=== PATIENT | female | born 1945 | race Caucasian/White ===

== ENCOUNTER 2019-12-12 06:33 | Inpatient (IN) | payer MEDICARE ==
[2019-12-12] VITALS (29 sets, daily range): BP systolic 86–122; BP diastolic 38–61
[~2019-12-12] VITALS: Ht 165.1 cm; Wt 77.0 kg
[2019-12-12] MEDS ORDERED: LEVO-T50 MCG PO (06:56)
[2019-12-12] MEDS ORDERED: BENAZEPRIL HCL20 MG PO (06:56)
[2019-12-12] MEDS ORDERED: CARVEDILOL12.5 MG PO (06:56)
[2019-12-12] MEDS ORDERED: NORVASC10 MG PO (06:57)
[2019-12-12] MEDS ORDERED: BREO ELLIPTA 21 EACH INH (06:57)
[2019-12-12] MEDS ORDERED: IPRAT-ALBUT 0.5-3 ML INH (06:58)
[2019-12-12] MEDS ORDERED: PREDNISONE 10 M10 M1 PO (06:58)
[2019-12-12] MEDS ORDERED: XANAX 0.25 MG0.25 MG PO (06:59)
[2019-12-12] MEDS ORDERED: DOXYCYCLINE 10100 M2 PO (06:59)
[2019-12-12] MEDS ORDERED: BIOFREEZE118 ML TOP (07:00)
[2019-12-12] MEDS ORDERED: ACETAMINOPHEN325 M1 PO (07:00)
[2019-12-12] MEDS ORDERED: LORCET 5-325 M1 EACH PO (07:00)
[2019-12-12 07:05] LABS: ABSOLUTE LYMPHOCYTES 1.8 thou/uL (0.8-5.3); ABSOLUTE MONOCYTES 0.8 thou/uL (0.0-1.2); ABSOLUTE NEUTROPHILS 10.7 thou/uL (1.6-8.1); BASOPHILS 0.4 %; EOSINOPHILS 0.1 %; HEMOGLOBIN 7.3 gm/dL (12.0-15.0); LYMPHOCYTES 13.4 %; MCH 29.7 pg (26.0-34.0); MCHC 33.3 g/dL (28.0-37.0); MCV 89.2 fL (80.0-100.0); MONOCYTES 5.9 %; MPV 8.2 fl. (7.2-11.1); NUCLEATED RBCS 3 /100WBC; PLATELET COUNT* 179 thou/uL (150-400); POLYS 80.2 %; RBC 2.47 mil/uL (4.20-5.00); RDW-CV 21.8 % (10.5-14.5); WBC 13.3 thou/uL (4.0-11.0)
[2019-12-12 07:09] LABS: BE 1.2 mmol/L (-2 to +3); pH 7.372 (7.340-7.450)
[2019-12-12 07:12] LABS: PO2 < 23.5 mmHg (75.0-100.0)
--- NOTE | 2019-12-12 07:14 | NUR ---
CALLED LEROY PHELPS, SON; NOTIFIED HIM OF HIS MOTHER'S STATUS AND VERBALIZED UNDERSTANDING. SON DENIES ANY QUESTIONS OR CONCERNS
[2019-12-12 07:21] LABS: CALCIUM 8.4 mg/dL (8.5-10.1); CREATININE 1.2 mg/dL (0.6-1.3); POTASSIUM 4.5 mmol/L (3.5-5.1)
[2019-12-12 07:22] LABS: INR 1.2; PROTIME 11.9 Seconds (9.20-11.50)
[2019-12-12 07:26] LABS: ALBUMIN 1.9 g/dL (3.4-5.0); MAGNESIUM 1.6 mg/dL (1.8-2.4); TOTAL BILIRUBIN 0.8 mg/dL (<0.1-1.0)
[2019-12-12 07:59] LABS: URINE BILIRUBIN NEGATIVE (Negative); URINE BLOOD 1+ (Negative); URINE CLARITY CLEAR; URINE COLOR YELLOW; URINE GLUCOSE-RANDOM NEGATIVE (Negative); URINE KETONES NEGATIVE (Negative); URINE LEUKOCYTES-REFLEX 3+ (Negative); URINE NITRITE-REFLEX NEGATIVE (Negative); URINE PROTEIN NEGATIVE (Negative); URINE SPECIFIC GRAVITY 1.015 (1.005-1.030); URINE UROBILINOGEN 0.2 E.U./dl (0.2-1.0)
[2019-12-12 08:12] LABS: SQUAMOUS 0-3 Few /LPF (0-3)
--- NOTE | 2019-12-12 08:12 | NUR ---
RT PLACED PT ON NC/O2 AND PT DID NOT TOLERATE WELL, O2 SAT DROPPED TO 62%. PLACED PT BACK ON BIPAP AND O2 SAT WENT UP TO 90%
[2019-12-12 08:13] LABS: CASTS None Seen /LPF (None Seen); CRYSTALS None Seen /LPF (None Seen); MUCUS 0-3 Light strn/LPF (None Seen); URINE RBC 3-10 Few /HPF (0-2); URINE WBC-REFLEX >25 Many /HPF (0-5)
--- NOTE | 2019-12-12 09:50 | EKG ---
[place] [address] ELECTROCARDIOGRAM REPORT Name: OMAR PHELPS Room: [place] [address] ADM IN [facility].#: [id number] Admission: 12/12/19 Attend Phys: Anneliese Sanford, Discharge: Date of : 41 Date of Service: 12/12/19 0642 Report #: [id number] THIS REPORT FOR: //name// [facility] ED Test Date: 2019-12-12 Test Time: 06:42:17 Pat Name: OMAR PHELPS Department: Room: [facility] Gender: F Donor Floor Technician: MD : 1945 Requested By: Deepti Noland Order Number: [id number] MD: Oskar Jean Baptiste Measurements Intervals [place] Rate: 104 P: 45 AR: 146 QRS: 30 QRSD: 115 T: 23 QT: 363 QTc: 478 Interpretive Statements Sinus tachycardia Nonspecific intraventricular conduction delay Low voltage, extremity and precordial leads Baseline wander in lead(s) II,III,aVR,aVF,V2,V3,V4,V5,V6 No previous ECG available for comparison Electronically Signed On 12-12-2019 9:49:51 CDT by Oskar Jean Baptiste [email or web address] <ELECTRONICALLY SIGNED> By: Jolly Jean Baptiste MD, [facility] 12/12/19 0949 Jolly Jean Baptiste MD, [facility] /EPI
--- NOTE | 2019-12-12 18:41 | NUR ---
PT RECEIVED FROM ER AT 0957, A&O x4, FORGETFUL. ON BIPAP SUPPORT, FIO2 55%. NS AT 100 MLS/HR. MRSA SENT. SON UPDATED. TOLERATING SIPS. O2 SUPPORT CHANGED TO HFNC 12 L/MIN AT 1600, TOLERATING WELL.
[2019-12-13] VITALS (59 sets, daily range): BP systolic 75–142; BP diastolic 41–65
--- NOTE | 2019-12-13 04:10 | NUR ---
ASSUMED CARE 1900H, ON NC AT 12LPM AND TOLERATED. SEEN PT CONFUSED AND ALWAYS ASKING ME TO CALL HER SON AND DTR. RE-ORIENT PT AND KEPT CALM. EYE GLASSES, CP AND WATER CARTER BROUGHT BY HER SON AND GIVEN TO PT. SHE KEPT ON CALLING HER DTR AND I TALKED TO HER DTR, UPDATE GIVEN. PT O2 SAT STARTED TO DROP AND BACK TO BIPAP AT 60% THEN DECREASED TO 50% AND TOLERATED. PT SLEPT WELL ON THE BIPAP. NO DISTRESS AND NO AGITATION NOTED. NO FEVER. CLEAR LIQUID DIET TOLERATED AND NO ASPIRATION. CONTINUE MONITORING AND TOWARD GOALS.
[2019-12-13 04:14] LABS: MCH 29.4 pg (26.0-34.0); MCHC 32.8 g/dL (28.0-37.0); MCV 89.7 fL (80.0-100.0); MPV 8.2 fl. (7.2-11.1); RBC 2.07 mil/uL (4.20-5.00); RDW-CV 22.5 % (10.5-14.5); WBC 13.3 thou/uL (4.0-11.0)
[2019-12-13 04:44] LABS: ALBUMIN 1.5 g/dL (3.4-5.0); CALCIUM 7.6 mg/dL (8.5-10.1); CREATININE 0.9 mg/dL (0.6-1.3); MAGNESIUM 1.9 mg/dL (1.8-2.4); POTASSIUM 3.6 mmol/L (3.5-5.1); TOTAL BILIRUBIN 0.5 mg/dL (<0.1-1.0); TOTAL PROTEIN 4.4 g/dL (6.4-8.2)
[2019-12-13 05:17] LABS: BE -0.4 mmol/L (-2 to +3); PCO2 43.7 mmHg (35.0-45.0); PO2 80.6 mmHg (75.0-100.0); pH 7.373 (7.340-7.450)
[2019-12-13 05:51] LABS: HEMATOCRIT 18.5 % (37.0-47.0); HEMOGLOBIN 6.1 gm/dL (12.0-15.0)
--- NOTE | 2019-12-13 10:00 | NUR ---
CENTRAL LINE PLACED, RT FEMORAL, TRIPLE LUMEN BY DR MOSQUEDA.
[2019-12-13 16:09] LABS: BE -4.1 mmol/L (-2 to +3); PCO2 40.6 mmHg (35.0-45.0); pH 7.339 (7.340-7.450)
[2019-12-13 16:10] LABS: HEMATOCRIT 22.1 % (37.0-47.0); HEMOGLOBIN 7.2 gm/dL (12.0-15.0); MCH 29.3 pg (26.0-34.0); MCHC 32.7 g/dL (28.0-37.0); MCV 89.6 fL (80.0-100.0); MPV 8.3 fl. (7.2-11.1); NUCLEATED RBCS 2 /100WBC; PLATELET COUNT* 149 thou/uL (150-400); RBC 2.47 mil/uL (4.20-5.00); RDW-CV 21.5 % (10.5-14.5); WBC 13.2 thou/uL (4.0-11.0)
[2019-12-13 16:11] LABS: PO2 48.8 mmHg (75.0-100.0)
[2019-12-13 16:18] LABS: CALCIUM 7.6 mg/dL (8.5-10.1); CREATININE 0.8 mg/dL (0.6-1.3); MAGNESIUM 2.2 mg/dL (1.8-2.4); POTASSIUM 4.1 mmol/L (3.5-5.1)
[2019-12-13 16:44] LABS: ABSOLUTE LYMPHOCYTES 1.3 thou/uL (0.8-5.3); ABSOLUTE MONOCYTES 0.8 thou/uL (0.0-1.2); ABSOLUTE NEUTROPHILS 11.1 thou/uL (1.6-8.1); METAMYELOCYTES 3 %; PLATELET ESTIMATE DECREASED
[2019-12-13 16:45] LABS: ANISOCYTOSIS 2+
--- NOTE | 2019-12-13 19:57 | NUR ---
PT TO BE CONTD ON BIPAP SUPPORT PER DR MARIN. TWO UNITS OF PRBC TRANSFUSED. LEVOPHED STARTED TO KEEP MAP>65, AT 2MCG/MIN. POTASSIUM REPLACED PER DR MARIN. PT A&O BUT FORGETFUL. NPO STATUS. Q2 TURNS PROVIDED. BM TODAY.
--- NOTE | 2019-12-13 21:46 | CON ---
[address] [address] CONSULTATION Name: OMAR PHELPS Room: [address] ADM IN M.R.#: [id number] Admission: 12/12/19 Attend Phys: Anneliese Sanford MD Discharge: Date of : 41 Report #: [id number] THIS REPORT FOR: //name// cc: GIANNA Woo family physician/PCP GIANNA - Amna family physician/PCP ~ THIS REPORT FOR: //name// CC: GIANNA physician/PCP Anneliese Sanford DATE OF SERVICE: 12/13/2019 REQUESTED BY: Anneliese Sanford MD INDICATION FOR CONSULTATION: Acute hypoxemic respiratory failure. HISTORY OF PRESENT ILLNESS: This is a 74-year-old female patient, has a previous history of COPD. The patient's previous records are from [place], which she usually gets her care and the patient is reported to have had a recent admission at [place] as well. I do not have those records available. The patient is now admitted with worsening shortness of breath. The patient is also reported to have had significant increase in coughing for the last few days. The patient was in respiratory distress on arrival yesterday. The patient therefore had to be placed on a BiPAP. The patient was able to provide only a limited history. The patient is reported to have been significantly hypoxemic on arrival. Details of her O2 saturations initially on as to whether the patient was on oxygen before arrival are not known to me at this time. Regardless, the patient has been requiring around 55% FiO2 on BiPAP to maintain O2 saturation. Upon arrival, the patient was also tested for COVID-19 and was found to be negative for COVID-19. She since then has been treated with Solu-Medrol in addition to nebulized bronchodilators. The patient has also received broad-spectrum antibiotics as infiltrates are noted on her CT chest, which was negative for pulmonary emboli. The patient's shortness of breath in fact is reported to be better than yesterday. She, however, continues to have borderline blood pressure. The blood pressure was only 84/43 at the time of my evaluation. The patient is also noted to be anemic, hemoglobin on arrival was 7.3; this has dropped to 6.1 now. It is noted, however, that the patient also is in a positive balance since yesterday, which could possibly account for this drop in hemoglobin. There is no obvious source of external bleeding. The patient had limited IV access and therefore has just had a femoral central line placed as well. The patient in fact is fully awake at this time and does at this time appear comfortable on BiPAP. The patient is severely malnourished. Her hemoglobin is only 1.5. There is marked [place] [address] CONSULTATION Name: OMAR PHELPS Room: [address] IN .R.#: [id number] Admission: 12/12/19 Attend Phys: Anneliese Sanford MD Discharge: Date of : 41 Report #: [id number] patient is drowsy, arousable; however, continues to remain on BiPAP. The patient is not able to provide a further history or review of systems. PAST MEDICAL HISTORY: COPD, details not available. It is not known to me as to whether the patient is on oxygen long-term. Recent admission to [facility] with shortness of breath. The patient has recently been on prednisone; again not known to me as to whether this is a long-term medication for her. Also, history of hypertension, hyperlipidemia, cervix surgery, breast surgery, hypothyroidism. I do not have a measure of her left ventricular ejection fraction available at this time. SOCIAL HISTORY: The patient is reported to have had an extensive history of smoking about 1 pack a day for several decades; not known to me as to whether the patient has discontinued smoking. There is no known history of heavy alcohol use or illegal drug use. CURRENT MEDICATIONS: List in [place] reviewed. HOME MEDICATIONS: List also in [place] reviewed. ALLERGIES: There are no known drug allergies. PHYSICAL EXAMINATION: GENERAL: The patient is drowsy. She is arousable. VITAL SIGNS: She is on a BiPAP of 12/6 with 55% FiO2, O2 saturation is around 94-95%. She is breathing around 18-20. She is afebrile with a temperature of 36.6. Her blood pressure, however, was only 84/45 at the time of my evaluation. She has a pulse of 90. The patient in fact does not appear to be in distress at this time. Her body mass index is noted to be 26.7. HEENT: Head is normocephalic and atraumatic. The BiPAP mask in place, which limits evaluation of her throat; however, I do not see any obvious thrush or throat erythema. NECK: Does not show raised JVP, asymmetry, mass, or lymph nodes. CHEST: Breath sounds bilaterally equal. Breath sounds bilaterally decreased. Breath sounds are particularly decreased at bilateral lung bases. I do not hear any added sounds. HEART: Regular. There is no murmur. ABDOMEN: Soft and nontender. EXTREMITIES: Lower extremities show 3-4+ edema bilaterally. There is mild calf tenderness bilaterally. There are chronic skin changes consistent with chronic venous insufficiency. SKIN: However, is dry and intact. NEUROLOGICAL: She did move all extremities bilaterally equally and spontaneously with no focal deficit being identified. The patient had a CTA chest performed, which is as [place] [address] CONSULTATION Name: OMAR PHELPS Room: [address] ADM IN .R.#: [id number] Admission: 12/12/19 Attend Phys: Anneliese Sanford MD Discharge: Date of : 41 Report #: [id number] reviewed both the films as well as report. The patient has had 2 chest x-rays performed at admission; I again reviewed both films and report. LABORATORY DATA: The patient's CBC repeated twice in [facility] reviewed. The patient's chemistries are in [facility] and these are also reviewed. Arterial blood gases consistent with acute hypoxemic and hypercarbic respiratory failure, now compensated with the BiPAP in place in [facility] reviewed. Her D-dimer was elevated. INR was 1.2. There are no pulmonary emboli on the CT chest as referenced above. MRSA screen is pending. COVID-19 screen was negative. Urinalysis is abnormal and in [facility] reviewed. ASSESSMENT AND PLAN: 1. Acute hypoxemic and hypercarbic respiratory failure. There likely is a chronic component to this as well. At this time, the patient is stable on BiPAP; however, as discussed below, the patient does need packed RBCs and I intend to administer albumin as well as she is hypotensive and her albumin level is also low. It is therefore possible that the patient's respiratory status as a result of resuscitation declines and she requires endotracheal intubation down the line. For now, we will continue to keep her on BiPAP. We will reevaluate with labs and a chest x-ray and ABGs later in the day. 2. Chronic obstructive pulmonary disease exacerbation. Remains on Solu-Medrol as well as nebulized bronchodilators. I agree with the same. I added DuoNebs. 3. Pulmonary infiltrates. The patient is on vancomycin as well as Zosyn; I agree with the same. I will continue to follow cultures. I added urine for legionella antigen and pneumococcal antigen. 4. Hypotension with fluid overload and severe malnutrition. The patient is overall significantly total body fluid overloaded; and therefore, she may have limited tolerance to more fluids unless she is endotracheally intubated. I, therefore, in fact cut back on her normal saline rate. She does need packed RBCs. I would also go ahead and give her albumin and follow response. In the short run, I would give her norepinephrine if the blood pressure still remains low. If the patient fails to improve or decline, then she may require endotracheal intubation later in the day. At this time, I decided to observe her on BiPAP. 5. Anemia, etiology not defined at this time. I agree with packed RBCs. Suggest following hemoglobin levels. I did go ahead and start Protonix IV b.i.d. as well. 6. Edema. I would also recommend doing venous Dopplers. An echocardiogram is pending at this time. 7. Pulmonary nodules. There are vague multiple nodular opacities on the CT as well. I intend to repeat a CT again towards the end of this admission to follow up on this finding. 8. Deep vein thrombosis prophylaxis. If there is no deep vein thrombosis on the venous Doppler, then I suggest sequential compression devices. I would for now discontinue Lovenox considering drop in hemoglobin. 9. Elevated alkaline phosphatase. Recommend followup. [place] [address] [place] [address] CONSULTATION Name: OMAR PHELPS Room: [address] IN M.R.#: [id number] Admission: 12/12/19 Attend Phys: Anneliese Sanford MD Discharge: Date of : 41 Report #: [id number] The patient is critically ill at this time. Total time spent providing critical care to this patient today exceeds 45 minutes. <ELECTRONICALLY SIGNED> By: Donavon Valdes MD 12/13/19 2146 1124 1223Achele Valdes MD /nt
[2019-12-14] VITALS (47 sets, daily range): BP systolic 117–157; BP diastolic 48–77
[2019-12-14 01:17] LABS: HEMATOCRIT 27.7 % (37.0-47.0)
[2019-12-14 01:19] LABS: HEMOGLOBIN 9.3 gm/dL (12.0-15.0)
--- NOTE | 2019-12-14 04:09 | NUR ---
ASSUMED CARE AT 1900H, ON NC AT 8LPM TOLERATED. SEEN ON BED WITH NO CONFUSION. WITH BRUISING AT THE RIGHT GROIN, COLD COMPRESS DONE. 2ND UNIT OF BLOOD COMPLETED WITH NO REACTION NOTED. PUT BACK TO BIPAP AT 40% AND SLEPT WELL. NO DISTRESS AND NO BLEEDING NOTED. NO HEMATOMA NOTED ON THE RIGHT GROIN. CONTINUE MONITORING AND TOWARD GOALS.
[2019-12-14 05:20] LABS: ABSOLUTE MONOCYTES 0.8 thou/uL (0.0-1.2); ABSOLUTE NEUTROPHILS 11.2 thou/uL (1.6-8.1); BASOPHILS 0.3 %; HEMOGLOBIN 8.8 gm/dL (12.0-15.0); LYMPHOCYTES 7.6 %; MCH 29.7 pg (26.0-34.0); MCHC 33.8 g/dL (28.0-37.0); MCV 87.9 fL (80.0-100.0); MONOCYTES 5.9 %; MPV 7.9 fl. (7.2-11.1); NUCLEATED RBCS 1 /100WBC; PLATELET COUNT* 127 thou/uL (150-400); POLYS 86.2 %; RBC 2.96 mil/uL (4.20-5.00); RDW-CV 20.6 % (10.5-14.5)
[2019-12-14 05:35] LABS: CALCIUM 7.9 mg/dL (8.5-10.1); CREATININE 0.9 mg/dL (0.6-1.3); TOTAL BILIRUBIN 1.4 mg/dL (<0.1-1.0); TOTAL PROTEIN 5.3 g/dL (6.4-8.2)
[2019-12-14 05:36] LABS: POTASSIUM 2.8 mmol/L (3.5-5.1)
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
--- NOTE | 2019-12-14 13:26 | NUR ---
RIGHT BASILIC VESSEL ACCESSED FOR DUAL LUMEN POWER PICC. LINE PRE-TRIMMED TO 37CM AND ADVANCED TO THE ZDERO TINY WITH NO REISISTANCE MET. UPPER ARM CIRCUMFERENCE ABOVE INSERTION SITE= 11 1/2". SHERLOCK AND 3CG CONFIRMATION OF TIP TERMINATION AT THE CAVOATRIAL JUNCTION APPRECIATED. GUIDEWIRE REMOVED, LINE FLUSHED AND INSERTION SITE DRESSED. REPORT GIVEN TO YARELY PERALES.
--- NOTE | 2019-12-14 14:30 | 2DMMODE ---
[place] [address] 2 D/M-MODE ECHOCARDIOGRAM Name: OMAR PHELPS Room: [address] ADM IN M.R.#: [id number] Admission: 12/12/19 Attend Phys: Anneliese Sanford, Discharge: Date of : 41 Date of Service: 12/14/19 1429 Report #: [id number] THIS REPORT FOR: cc: FAM - No family physician/PCP FAM - No family physician/PCP Raymond Reynolds MD [facility] ~ APPROVED REPORT Study performed: 12/14/2019 09:50:13 EXAM: Comprehensive 2D, Doppler, and color-flow Echocardiogram Patient Location: In-Patient BSA: 1.80 HR: 101 bpm BP: 136/67 mmHg Other Information Study Quality: Fair Indications Sepsis Elevated Troponin 2D Dimensions IVSd: 10.30 (7-11mm) LVOT Diam: 19.47 (18-24mm) LVDd: 41.11 mm PWd: 8.27 (7-11mm) Ascending Ao: 34.11 (22-36mm) LVDs: 29.11 (25-40mm) Aortic Root: 24.37 mm Volumes Left Atrial Volume (Systole) LA ESV Index: 12.40 mL/m2 Aortic Valve AoV Peak Donavon.: 1.50 m/s AO Peak Gr.: 8.99 mmHg LVOT Max P.36 mmHg AO Mean Gr.: 5.32 mmHg LVOT Mean P.55 mmHg LVOT Max V: 0.92 m/s AO V2 VTI: 27.46 cm LVOT Mean V: 0.57 m/s ANA (VTI): 2.12 cm2 LVOT V1 VTI: 19.54 [place] [address] 2 D/M-MODE ECHOCARDIOGRAM Name: OMAR PHELPS Room: [address] IN M.R.#: [id number] Admission: 12/12/19 Attend Phys: Anneliese Sanford, Discharge: Date of : 41 Date of Service: 12/14/19 1429 Report #: [id number] E/A Ratio: 3.36 MV Decel. Time: 126.50 ms MV E Max Donavon.: 1.19 m/s MV PHT: 36.69 ms MVA (PHT): 6.00 cm2 TDI E/Lateral E': 7.00 E/Medial E': 6.61 Medial E' Donavon.: 0.18 m/s Lateral E' Donavon.: 0.17 m/s Pulmonary Valve PV Peak Donavon.: 0.99 m/s PV Peak Gr.: 3.95 mmHg Tricuspid Valve RAP Estimate: 20.00 mmHg TR Peak Gr.: 81.80 mmHg RVSP: 101.80 mmHg PA Pressure: 101.80 mmHg Left Ventricle The left ventricle is normal size. There is normal LV segmental wall motion. There is normal left ventricular wall thickness. Left ventricular systolic function is normal. The left ventricular ejection fraction is within the normal range. LVEF is 60-65%. Right Ventricle Right ventricle is mildly dilated. Right ventricle is mildly hypokinetic. Atria The left atrium size is normal. The right atrium size is normal. Aortic Valve Aortic valve is calcified. No aortic regurgitation is present. There is no aortic valvular stenosis. Mitral Valve Mitral valve leaflets are calcified. Mild mitral regurgitation. No evidence of mitral valve stenosis. Tricuspid Valve The tricuspid valve is normal in structure. Moderate tricuspid regurgitation. estimated pa pressure 90 [place] [address] 2 D/M-MODE ECHOCARDIOGRAM Name: OMAR PHELPS Room: [address] IN [facility]#: [id number] Admission: 12/12/19 Attend Phys: Anneliese Sanford, Discharge: Date of : 41 Date of Service: 12/14/19 1429 Report #: [id number] The pulmonary valve is normal in structure. There is no pulmonic valvular regurgitation. Great Vessels The aortic root is normal in size. IVC is dilated. Pericardium There is no pericardial effusion. <Conclusion> LVEF is 60-65%. Right ventricle is mildly dilated. Moderate tricuspid regurgitation. estimated pa pressure 90 mm Hg <ELECTRONICALLY SIGNED> By: Raymond Reynolds MD, [facility] 12/14/19 1429 28 28 Raymond Reynolds MD, FAC /INF
[2019-12-14 17:28] LABS: ABSOLUTE NEUTROPHILS 14.5 thou/uL (1.6-8.1); BASOPHILS 0.2 %; HEMATOCRIT 27.9 % (37.0-47.0); HEMOGLOBIN 9.3 gm/dL (12.0-15.0); LYMPHOCYTES 6.3 %; MCH 29.4 pg (26.0-34.0); MCHC 33.4 g/dL (28.0-37.0); MCV 88.2 fL (80.0-100.0); MONOCYTES 6.2 %; MPV 8.3 fl. (7.2-11.1); NUCLEATED RBCS 2 /100WBC; PLATELET COUNT* 140 thou/uL (150-400); POLYS 87.3 %; RBC 3.16 mil/uL (4.20-5.00); RDW-CV 21.4 % (10.5-14.5); WBC 16.6 thou/uL (4.0-11.0)
[2019-12-14 18:03] LABS: CALCIUM 8.3 mg/dL (8.5-10.1); CREATININE 0.8 mg/dL (0.6-1.3); POTASSIUM 3.9 mmol/L (3.5-5.1)
--- NOTE | 2019-12-14 18:26 | NUR ---
PT IS ALERT AND ORIENTED BUT CONFUSED AT TIMES.PARENT AIDE IN PLACE WITH NO CHANGES.PT REMAINS ON 8L O2 NC.PAIN MANAGED WELL WITH PO MEDICATIONS.TOLERATING CLEAR LIQUID DIET.ECHO COMPLETED.PICC INSERTED AND FEMORAL CENTRAL LINE REMOVED PER ORDERS.VANC HELD DUE TO VANC TROUGH PER PHARMACY.POTASSIUM REPLACED.PT SON VISITED AT BEDSIDE THROUGHOUT THE DAY.SON IS DESIGNATED VISITOR.CALL LIGHT AND FALL PRECAUTIONS IN PLACE.WILL CONTINUE TO MONITOR FOR DURATION OF SHIFT.
[2019-12-15] VITALS (31 sets, daily range): BP systolic 116–150; BP diastolic 65–86
[2019-12-15 03:47] LABS: ABSOLUTE MONOCYTES 0.9 thou/uL (0.0-1.2); BASOPHILS 0.3 %; HEMATOCRIT 26.1 % (37.0-47.0); HEMOGLOBIN 8.8 gm/dL (12.0-15.0); LYMPHOCYTES 6.5 %; MCH 29.6 pg (26.0-34.0); MCHC 33.7 g/dL (28.0-37.0); MCV 87.9 fL (80.0-100.0); MONOCYTES 5.8 %; MPV 7.9 fl. (7.2-11.1); NUCLEATED RBCS 1 /100WBC; PLATELET COUNT* 126 thou/uL (150-400); POLYS 87.4 %; RBC 2.97 mil/uL (4.20-5.00); RDW-CV 21.4 % (10.5-14.5); WBC 14.9 thou/uL (4.0-11.0)
[2019-12-15 04:11] LABS: ALBUMIN 3.7 g/dL (3.4-5.0); CALCIUM 8.1 mg/dL (8.5-10.1); CREATININE 0.8 mg/dL (0.6-1.3); MAGNESIUM 1.9 mg/dL (1.8-2.4); POTASSIUM 3.2 mmol/L (3.5-5.1); TOTAL BILIRUBIN 1.5 mg/dL (<0.1-1.0); TOTAL PROTEIN 5.8 g/dL (6.4-8.2)
--- NOTE | 2019-12-15 05:15 | NUR ---
PATIENT ORIENTED TO SELF, PLACE ANS SITUATION, CONFUSED AT TIMES. PT ON BIPAP THROUGH THE NIGHT, ATTEMPTING TO TAKE BIPAP OFF, ALSO DOES NOT WANT NC O2. DESATS VERY QUICKLY WITH NO SUPPLEMENTAL O2. COMPLAINS OF BACK AND GENERALIZED PAIN. OTHERWISE UNEVENTFUL NIGHT. NO BM, UOP 1100CC. CALL LIGHT WITHIN REACH, BED ALARM ON. Q2 TURNS WHENEVER PT AGREES. WILL CONTINUE MONITORING.
--- NOTE | 2019-12-15 13:58 | NUR ---
ICU rounds: Pt on bipap. Tele status in a few days, pulm wants Pt to remain in the ICU. Replacing Earl Valderrama. CM to reassess tomorrow to determine if Pt is oriented enough to sign DPOA.
[2019-12-15 14:03] LABS: HEMATOCRIT 27.7 % (37.0-47.0); HEMOGLOBIN 9.3 gm/dL (12.0-15.0); MCH 29.5 pg (26.0-34.0); MCHC 33.7 g/dL (28.0-37.0); MCV 87.8 fL (80.0-100.0); MPV 7.5 fl. (7.2-11.1); RBC 3.15 mil/uL (4.20-5.00); RDW-CV 21.7 % (10.5-14.5); WBC 17.6 thou/uL (4.0-11.0)
[2019-12-15 15:13] LABS: CALCIUM 8.3 mg/dL (8.5-10.1); CREATININE 0.8 mg/dL (0.6-1.3); POTASSIUM 3.8 mmol/L (3.5-5.1)
--- NOTE | 2019-12-15 17:05 | NUR ---
PT HAS BEEN CONFUSED AND ANXIOUS THROUGHOUT THE SHIFT.PT NOT TOLERATING 8L NC AND PLACED BACK ON BIPAP.PT PULLING AT BIPAP-PHYSICIAN NOTIFIED WITH NEW ORDERS RECEVIED.PT SEDATED ON PRECEDEX PER TITRATION PROTOCOL.POTASSIUM REPLACED.LASIX GIVEN.PT STARTED ON HEPARIN DRIP PER DVT PROTOCOL FOR DVT IN LEFT LEG.Q2 HOUR POSITION CHANGES.CALL LIGHT AND FALL PRECAUTIONS IN PLACE.WILL CONTINUE TO MONITOR FOR DURATION OF SHIFT.
[2019-12-15 20:09] LABS: HEMATOCRIT 25.3 % (37.0-47.0); HEMOGLOBIN 8.5 gm/dL (12.0-15.0)
[2019-12-16] VITALS (28 sets, daily range): BP systolic 123–182; BP diastolic 62–103
[2019-12-16 02:57] LABS: HEMATOCRIT 24.8 % (37.0-47.0); HEMOGLOBIN 8.3 gm/dL (12.0-15.0); MCH 29.5 pg (26.0-34.0); MCHC 33.5 g/dL (28.0-37.0); MCV 88.2 fL (80.0-100.0); MPV 7.7 fl. (7.2-11.1); NUCLEATED RBCS 0 /100WBC; PLATELET COUNT* 112 thou/uL (150-400); RBC 2.82 mil/uL (4.20-5.00); RDW-CV 21.2 % (10.5-14.5); WBC 14.8 thou/uL (4.0-11.0)
[2019-12-16 03:09] LABS: HEMATOCRIT 24.8 % (37.0-47.0); HEMOGLOBIN 8.3 gm/dL (12.0-15.0)
[2019-12-16 03:12] LABS: ALBUMIN 3.3 g/dL (3.4-5.0); CALCIUM 8.1 mg/dL (8.5-10.1); CREATININE 0.8 mg/dL (0.6-1.3); POTASSIUM 3.3 mmol/L (3.5-5.1); TOTAL BILIRUBIN 1.1 mg/dL (<0.1-1.0); TOTAL PROTEIN 5.3 g/dL (6.4-8.2)
[2019-12-16 05:51] LABS: ABSOLUTE LYMPHOCYTES 1.2 thou/uL (0.8-5.3); ABSOLUTE MONOCYTES 0.6 thou/uL (0.0-1.2); ANISOCYTOSIS 1+; HYPOCHROMASIA 1+; MYELOCYTES 1 %; PLATELET ESTIMATE DECREASED; POIKILOCYTOSIS 1+; POLYCHROMASIA 1+
--- NOTE | 2019-12-16 06:25 | NUR ---
VITALS STABLE, AFEBRILE. PT ON BIPAP THROUGH THE NIGHT. PRECEDEX TITRATED DOWN TO 0.5 MCG/KG/HR. PT ABLE TO DRINK WATER/SWALLOW PILLS WITH CLOSE SUPERVISION. COMPLAINS OF SHOULDER/BACK PAIN. NO BM. Q2 TURNS FOR SKIN INTEGRITY. CALL LIGHT WITHIN REACH. WILL CONTINUE MONITORING.
[2019-12-16 08:52] LABS: HEMATOCRIT 24.7 % (37.0-47.0); HEMOGLOBIN 8.2 gm/dL (12.0-15.0)
[2019-12-16 14:40] LABS: HEMATOCRIT 25.1 % (37.0-47.0); HEMOGLOBIN 8.3 gm/dL (12.0-15.0)
--- NOTE | 2019-12-16 14:50 | NUR ---
ICU rounds: Pulm following, still ICU status. On bipap
--- NOTE | 2019-12-16 20:03 | NUR ---
PT CONFUSED AND DELIRIOUS, FREQUENT REORIENTATION PROVIDED. PRECEDEX TITRATED PER PROTOCOL, CURRENTLY AT 1MCG/KG/HR. TOLERATED HFNC FOR 2/3rd OF THE SHIFT, BIPAP THE REST.TOLERATED SOFT DIET. HAD 2 LOOSE BM THIS SHIFT. DENIES PAIN. SON UPDATED. Q2 TURNS PROVIDED.
[2019-12-16 23:35] LABS: HEMATOCRIT 24.5 % (37.0-47.0)
[2019-12-17] VITALS (18 sets, daily range): BP systolic 100–166; BP diastolic 38–88
[2019-12-17 01:47] LABS: HEMATOCRIT 24.4 % (37.0-47.0); MCH 29.7 pg (26.0-34.0); MPV 8.6 fl. (7.2-11.1); NUCLEATED RBCS 0 /100WBC; PLATELET COUNT* 113 thou/uL (150-400); RBC 2.71 mil/uL (4.20-5.00); RDW-CV 22.1 % (10.5-14.5); WBC 14.5 thou/uL (4.0-11.0)
[2019-12-17 01:55] LABS: PCO2 32.1 mmHg (35.0-45.0); PO2 62.4 mmHg (75.0-100.0); pH 7.535 (7.340-7.450)
[2019-12-17 01:56] LABS: ALBUMIN 2.9 g/dL (3.4-5.0); CREATININE 0.7 mg/dL (0.6-1.3); TOTAL BILIRUBIN 1.1 mg/dL (<0.1-1.0); TOTAL PROTEIN 5.2 g/dL (6.4-8.2); TROPONIN-I LEVEL 0.14 ng/mL (<0.06)
[2019-12-17 02:39] LABS: ABSOLUTE LYMPHOCYTES 1.6 thou/uL (0.8-5.3); ABSOLUTE MONOCYTES 1.9 thou/uL (0.0-1.2); PLATELET ESTIMATE ADEQUATE
[2019-12-17 07:03] LABS: HEMOGLOBIN 8.2 gm/dL (12.0-15.0)
--- NOTE | 2019-12-17 10:22 | EKG ---
[place] [address] ELECTROCARDIOGRAM REPORT Name: OMAR PHELPS Room: [address] ADM IN .R.#: [id number] Admission: 12/12/19 Attend Phys: Anneliese Sanford, Discharge: Date of : 41 Date of Service: 12/17/19 0124 Report #: [id number] THIS REPORT FOR: //name// [facility] Test Date: 2019-12-17 Test Time: 01:24:31 Pat Name: OMAR PHELPS Department: Room: [address] Gender: F Tractor Technician: UNKNOWN : 1945 Requested By: Anneliese Sanford Order Number: [id number] Reading MD: Raymond Reynolds Measurements Intervals [place] Rate: 64 P: 68 KS: 147 QRS: 62 QRSD: 97 T: 67 QT: 403 QTc: 416 Interpretive Statements Sinus rhythm Low voltage, precordial leads Abnormal T, consider ischemia, anterior leads Compared to ECG 12/12/2019 06:42:17 T-wave abnormality now present Possible ischemia now present Sinus tachycardia no longer present Electronically Signed On 12-17-2019 10:21:33 CDT by Raymond Reynolds [email or web address] <ELECTRONICALLY SIGNED> By: Raymond Reynolds MD, [facility] 12/17/19 1021 0124 0124 Raymond Reynolds MD, FAC /EPI
--- NOTE | 2019-12-17 13:24 | NUR ---
ICU rounds: On 8Lo2, bipap PRN and at NOC.
--- NOTE | 2019-12-17 14:08 | NUR ---
PATIENT C/O SOA. 2 RNS AT BEDSIDE TO REPOSITION TO INCREASE HOB. PRIOR TO REPOSITIONING PATIENT DESATED 74%, BRADYED TO HR53, PULLED UP IMMEDIATELY, AND INCREASED BIPAP TO 100%. THIS OCCURED IN LESS THAN [address] MARIN NOTIFIED. STAT PORTABLE CHEST ORDERED. CALLED TO NOTIFY. PATIENT MORE AWAKE AND ANXIOUS.
--- NOTE | 2019-12-17 14:30 | NUR ---
IVC FILTER PLACEMENT POSTPONED TO 12/18/19.
[2019-12-17 18:20] LABS: HEMATOCRIT 24.8 % (37.0-47.0); HEMOGLOBIN 8.1 gm/dL (12.0-15.0)
[2019-12-17 18:27] LABS: CALCIUM 8.3 mg/dL (8.5-10.1); CREATININE 0.8 mg/dL (0.6-1.3); POTASSIUM 3.9 mmol/L (3.5-5.1)
[2019-12-18] VITALS (32 sets, daily range): BP systolic 98–142; BP diastolic 40–86
[2019-12-18 06:11] LABS: CALCIUM 7.7 mg/dL (8.5-10.1); CREATININE 0.8 mg/dL (0.6-1.3); MAGNESIUM 1.9 mg/dL (1.8-2.4)
[2019-12-18 06:15] LABS: HEMATOCRIT 23.8 % (37.0-47.0); HEMOGLOBIN 7.8 gm/dL (12.0-15.0); MCH 29.6 pg (26.0-34.0); MCHC 32.9 g/dL (28.0-37.0); MPV 9.3 fl. (7.2-11.1); NUCLEATED RBCS 1 /100WBC; PLATELET COUNT* 128 thou/uL (150-400); RBC 2.65 mil/uL (4.20-5.00); RDW-CV 22.5 % (10.5-14.5); WBC 15.8 thou/uL (4.0-11.0)
--- NOTE | 2019-12-18 06:24 | NUR ---
PT. NOT PROGRESSING TOWARDS GOALS, FREQUENT EPISODES OF DESATING AND TACHYPNEA. PT. REBOUNDS AFTER SHORT PERIOD. PRECEDEX GTT REMAINS AT MAX. SINUS RHYHTM ON MONITOR. WILL CONTINUE TO MONITOR
[2019-12-18 07:00] LABS: ABSOLUTE LYMPHOCYTES 0.6 thou/uL (0.8-5.3); ABSOLUTE MONOCYTES 0.6 thou/uL (0.0-1.2); ABSOLUTE NEUTROPHILS 14.5 thou/uL (1.6-8.1); MYELOCYTES 1 %
[2019-12-18 07:01] LABS: ANISOCYTOSIS 1+; PLATELET ESTIMATE DECREASED; POIKILOCYTOSIS 1+
--- NOTE | 2019-12-18 13:00 | NUR ---
ASSUMED PT CARE 0730. PT OPEN EYES UPON REQUEST. PT FOLLOWING COMMANDS. PT ON BIPAP. VSS. FEBRILE TEMP OF 100.8. ICE PACKS APPLIED TO BILATERAL AXILLA. AFTER ASSESMENT BY PULMONARY, PT TO BE INTUBATED. SPOKE TO DR MARIN WHO SPOKE TO INTERNAL MEDICINE DR TORRE WHO SPOKE TO FAMILY. DUE TO CHANGE IN STATUS FROM YESTERDAY. PT TO BE INTUBATED. PT INTUBATED AT [address] RAMEY.
[2019-12-18 13:07] LABS: PO2 118.5 mmHg (75.0-100.0); pH 7.441 (7.340-7.450)
[2019-12-18 13:08] LABS: BE 3.5 mmol/L (-2 to +3)
--- NOTE | 2019-12-18 15:48 | NUR ---
ICU rounds: Pt intubated. Pt was to have an IVC filter placed. DPOA completed yesterday, appointing Pt's son and dtr, on Pt's chart. CM updated Pt's son.
[2019-12-18 18:13] LABS: HEMOGLOBIN 7.3 gm/dL (12.0-15.0)
--- NOTE | 2019-12-18 18:37 | NUR ---
PT TOLERATING VENTILATOR. SON LEROY VISITED PT. ORIGINAL DPOA PAPER WORK GIVEN TO SON WITH COPIES. VSS. PULMONARY SPOKE TO IR AND PT OKAY TO HAVE IVC FILTER PLACED TODAY. PT RETURNED FROM IR AFTER PLACMENT AROUND 1710. OG PLACED.
[2019-12-19] VITALS (34 sets, daily range): BP systolic 117–157; BP diastolic 53–74
[2019-12-19 04:44] LABS: INR 1.1; PROTIME 11.6 Seconds (9.20-11.50)
[2019-12-19 04:48] LABS: HEMOGLOBIN 6.9 gm/dL (12.0-15.0)
[2019-12-19 04:54] LABS: CALCIUM 7.7 mg/dL (8.5-10.1); CREATININE 0.6 mg/dL (0.6-1.3); POTASSIUM 3.5 mmol/L (3.5-5.1); TOTAL BILIRUBIN 0.6 mg/dL (<0.1-1.0); TOTAL PROTEIN 4.3 g/dL (6.4-8.2)
[2019-12-19 06:00] LABS: BE 2.7 mmol/L (-2 to +3); PO2 93.8 mmHg (75.0-100.0); pH 7.446 (7.340-7.450)
--- NOTE | 2019-12-19 06:36 | NUR ---
ASSUMED CARE AT 1900H, ON VENT AT 80% WITH PRECEDEX AT MAX DOSE. PT SEEN ON BED RELAX AND NOT FIGHTING THE VENT. FIO2 DECREASE TO 60% AND TOLERATED. PT CAN BE EASLY BE AWAKEN AND FOLLOW COMMANDS. SEEN BY PULMO WITH ORDERS MADE AND CARRIED OUT. SKIN TEAR ON THE BRIDGE OF THE NOSE, PROBABLY FROM THE BIPAP MASK. WOUND CONSULT ORDERED. PT WAS FEVEREISH, TYLENON PRN GIVEN AND SPONGE BATH GIVEN. LATEST FIO2 60% AND STILL ON PRECEDEX MAX DOSE. CONTINUE MONITORING AND TOWARD GOALS.
--- NOTE | 2019-12-19 08:02 | CON ---
[address] [address] CONSULTATION Name: OMAR PHELPS Room: [address] IN M.R.#: [id number] Admission: 12/12/19 Attend Phys: Anneliese Sanford MD Discharge: Date of : 41 Report #: [id number] THIS REPORT FOR: //name// cc: GIANNA Woo family physician/PCP GIANNA Woo family physician/PCP ~ THIS REPORT FOR: //name// CC: GIANNA physician/PCP Anneliese Sanford DATE OF SERVICE: 12/18/2019 INFECTIOUS DISEASE CONSULTATION ATTENDING PHYSICIAN: Anneliese Sanford MD REASON FOR EVALUATION: Nosocomial fevers in a patient with respiratory failure, critical illness. HISTORY OF PRESENT ILLNESS: Chart reviewed, the patient examined. This is a 74-year-old woman with a history of hypertension, although not clear if she has had significant medical history who presented on 12/11 to Emergency Room with complaints of chest-related discomfort, also upper back. This was associated with progressive dyspnea, apparently has some degree of lung disease, who was found to have hypoxemia, was placed on positive pressure ventilation with BiPAP in spite of being aggressive therapy including antibiotics, now on piperacillin and tazobactam as well as vancomycin. She has had worsening clinical status. She has persistence on BiPAP. There was discussion about intubation with mechanical ventilatory support. At this point, she is minimally responsive. She is noted to have fevers, although interestingly she appears to have temperature-pulse dissociation. Hemodynamics have been relatively stable, has not required pressor support. She has had a consistent leukocytosis, although it is not marked. She was hyponatremic when she presented, although that is improved as well. She is not experiencing multiorgan dysfunction either cultures remarkable only for positive urine culture with Escherichia coli. ALLERGIES: None known. MEDICINES: Include Zosyn, lorazepam, dexmedetomidine, vancomycin, ipratropium and albuterol inhaler, pantoprazole, arformoterol, budesonide, levothyroxine, methylprednisolone, p.r.n. analgesics and antiemetics. PAST MEDICAL HISTORY: As described above, history of hypertension, underlying obstructive pulmonary disease, elevated cholesterol. SOCIAL HISTORY: Former smoker. No ethanol. [place] [address] CONSULTATION Name: OMAR PHELPS Room: [address] IN [facility].#: [id number] Admission: 12/12/19 Attend Phys: Anneliese Sanford MD Discharge: Date of : 41 Report #: [id number] FAMILY HISTORY: Noncontributory. REVIEW OF SYSTEMS: Not obtainable. PHYSICAL EXAMINATION: GENERAL: She appears chronically ill. She has some generalized edema who has multiple areas of contusion, in particular the base of the anterior neck. She is on BiPAP, appears undernourished. VITAL SIGNS: Temperature 100.4, pulse 75, respirations 20, blood pressure is 127/67, saturation 100%, FiO2 of 0.5. HEENT: Neck appears to be supple. LUNGS: Scattered coarse breath sounds. HEART: Regular, distant. I do not appreciate a murmur. ABDOMEN: Soft. There are no apparent peritoneal signs, no rigidity. EXTREMITIES: Distal lower extremities are warm to touch. There is no mottling. Does have generalized edema, in particularly the upper extremities and upper torso and face. GENITOURINARY AND RECTAL: Deferred. LABORATORY DATA: CBC: White count of 15.8, H and H 7.8 and 23.8, platelets of 128, has a lymphocytopenia of 600. Chest x-ray showed mild cardiomegaly with vascular congestions, lower lobe atelectasis, small effusions. Electrolytes: Sodium 145, potassium 4.0, chloride 105, bicarbonate is 30, anion gap of 10, BUN and creatinine 22 and 0.8. Blood cultures from admission are sterile thus far. Liver functions from the 18th showed alkaline phosphatase of 244, total bilirubin of 1.1, total protein 5.2, albumin of 2.8. Estimated GFR of 81. ABGs from yesterday, pH 7.535, pCO2 of 32.1, pO2 of 62.4, FiO2 of 50%. ASSESSMENT: Nosocomial fevers. The patient presented with dyspnea and has progressively not improved even over the course of the last several days in spite of broad spectrum antimicrobials, treating suspected infectious component. Imaging of the chest is pending with a CT. We will adjust antimicrobial therapy. There is a concern about possible medication-induced fevers. We will repeat blood cultures including lactic acid, inflammatory marker. It is unclear given her age if she has had any particular exposure history. She remains critically ill. We will monitor expectantly. <ELECTRONICALLY SIGNED> By: Richard Gore MD 12/19/19 0802 1130 [id number] Gore MD /nt
--- NOTE | 2019-12-19 10:28 | NUR ---
0730 ASSUMED CARE OF PATIENT. PLEASE SEE DOCUMENTED ASSESSMENT. PT IS RECEIVING ONE UNIT OF PACKED CELLS. PT IS UNRESTRAINED ON VENTILATOR.
--- NOTE | 2019-12-19 12:30 | NUR ---
0915 PULMONRY ROUNDS COMPLETED AND ORDERS NOTED.
[2019-12-19 17:52] LABS: HEMATOCRIT 24.8 % (37.0-47.0); HEMOGLOBIN 8.4 gm/dL (12.0-15.0)
--- NOTE | 2019-12-19 18:26 | NUR ---
PATIENT MAKING PROGRESS TOWARDS GOALS. TRANSFUSED ONE UNIT PACKED CELLS. FIO2 WEANED TO 50%. RECEIVED ALBUMIN AND LASIX. PT IS AWAKE AND UNRESTRAINED ON VENT. POTASSIUM BEING REPLACED POST DIURESIS. PT ABLE TO COMMUNICATE NEEDS FAIRLY WELL WITH NOTEPAD AND GESTURES. FEVER TREATED WITH TYLENOL. NO VISITORS TODAY NOR HAS FAMILY CALLED TODAY.
[2019-12-20] VITALS (24 sets, daily range): BP systolic 111–158; BP diastolic 48–76
--- NOTE | 2019-12-20 04:11 | NUR ---
ASSUMED CARE AT 1900H, ON VENT AT 50% AND ON PRECEDEX AT MAX DOSE. SEEN EASILY ARROUSABLE, FOLLOW COMMANDS AND FEVERISH. SEEN BY PULMO AND UPDATE GIVEN. PT SOMETIMES ANXIOUS, PRN ATIVAN GIVEN. SPONGE BATH AND PRN TYLENOL GIVEN FOR FEVER. FIO2 DECREASE TO 40% AND TOLERATED. NO BLEEDING AND NO DISTRESS NOTED. STILL ON PRECEDEX AND STILL EASILY ARROUSABLE. CONTINUE MONITORING AND TOWARDS CARE.
[2019-12-20 04:17] LABS: BE 0.2 mmol/L (-2 to +3); PCO2 31.7 mmHg (35.0-45.0); PO2 75.6 mmHg (75.0-100.0); pH 7.484 (7.340-7.450)
[2019-12-20 05:49] LABS: INR 1.2
[2019-12-20 05:54] LABS: HEMATOCRIT 24.1 % (37.0-47.0)
[2019-12-20 06:12] LABS: ABSOLUTE LYMPHOCYTES 0.4 thou/uL (0.8-5.3); ABSOLUTE MONOCYTES 0.7 thou/uL (0.0-1.2); ABSOLUTE NEUTROPHILS 17.6 thou/uL (1.6-8.1); BASOPHILS 0.1 %; HEMATOCRIT 23.6 % (37.0-47.0); HEMOGLOBIN 8.1 gm/dL (12.0-15.0); LYMPHOCYTES 2.3 %; MCH 30.7 pg (26.0-34.0); MCHC 34.2 g/dL (28.0-37.0); MCV 89.6 fL (80.0-100.0); MONOCYTES 3.5 %; MPV 9.1 fl. (7.2-11.1); NUCLEATED RBCS 0 /100WBC; PLATELET COUNT* 101 thou/uL (150-400); POLYS 94.1 %; RBC 2.63 mil/uL (4.20-5.00); RDW-CV 19.1 % (10.5-14.5); WBC 18.7 thou/uL (4.0-11.0)
[2019-12-20 06:20] LABS: ALBUMIN 2.3 g/dL (3.4-5.0); CALCIUM 7.7 mg/dL (8.5-10.1); CREATININE 0.6 mg/dL (0.6-1.3); POTASSIUM 3.7 mmol/L (3.5-5.1); TOTAL BILIRUBIN 0.9 mg/dL (<0.1-1.0); TOTAL PROTEIN 4.8 g/dL (6.4-8.2)
--- NOTE | 2019-12-20 10:04 | NUR ---
0730 ASSUMED CARE OF PATIENT. PLEASE SEE DOCUMENTED ASSESSMENT. PT DENIES PAIN AND IS COMFORTABLE UNRESTRAINED ON VENTILATOR.DR RAPP TO SEE PATIENT.
--- NOTE | 2019-12-20 10:07 | NUR ---
PATIENT SWABBED FOR CORONAVIRUS AND PLACED IN ENHANCED PRECAUTIONS. SON LEROY INFORMED AND ALSO TOLD PATIENT.
--- NOTE | 2019-12-20 17:41 | NUR ---
PATIENT PROGRESSING TOWARDS GOALS. NOW ON 40% FIO2. ABLE TO COMMUNICATE NEEDS. MEDICATED ONCE FOR ANXIETY BUT IS UNRESTRAINED ON VENTILATOR. IN ENHANCED PRECAUTIONS TO RULE OUT CORONAVIRUS INFECTION, SON CAME TO WINDOW AND PT WAS ABLE TO HEAR HIM SPEAK ON HER TELEPHONE.
[2019-12-20 18:05] LABS: HEMATOCRIT 24.3 % (37.0-47.0); HEMOGLOBIN 8.1 gm/dL (12.0-15.0)
[2019-12-21] VITALS (17 sets, daily range): BP systolic 87–138; BP diastolic 40–65
--- NOTE | 2019-12-21 05:01 | NUR ---
ASSUMED CARE AT 1900H, ON VENT AT 40% AND TOLERATED. SEEN ON BED AWAKE AND SEEMS ANXIOUS. SOMETIMES PT WAS TACHYPNIC, PRN MEDS GIVEN. SEEN BY PULMO WITH ORDERS MADE AND CARRIED OUT. PLANNING TO DO BRONCOSCOPY AND BIOPSY WHILE SHE'S INTUBATED. UPDATE GIVEN TO SON AND TO INFORM HIM IF THEY WILL DO BREATHING TRIAL. HE WANTED TO BE HERE WHEN THEY DO THE BREATHING TRIAL OR JUST CHECK HER OUTSIDE THE WINDOW. NO BLEEDING NOTED. CONTINUES FEEDING STARTED (JEVITY 1.5) AT 30ML/HR NOW WITH NO RESIDUAL, GOAL AT 45ML/HR. CONTINUE MONITORING AND TOWARD GOALS.
[2019-12-21 05:04] LABS: BE -0.2 mmol/L (-2 to +3); PCO2 32.2 mmHg (35.0-45.0); PO2 60.9 mmHg (75.0-100.0); pH 7.473 (7.340-7.450)
[2019-12-21 06:22] LABS: HEMATOCRIT 23.6 % (37.0-47.0); HEMOGLOBIN 7.7 gm/dL (12.0-15.0); MCH 29.9 pg (26.0-34.0); MCHC 32.7 g/dL (28.0-37.0); MCV 91.4 fL (80.0-100.0); MPV 9.6 fl. (7.2-11.1); NUCLEATED RBCS 0 /100WBC; PLATELET COUNT* 97 thou/uL (150-400); RBC 2.58 mil/uL (4.20-5.00); RDW-CV 19.6 % (10.5-14.5); WBC 17.1 thou/uL (4.0-11.0)
[2019-12-21 06:35] LABS: INR 1.2; PROTIME 12.5 Seconds (9.20-11.50)
[2019-12-21 06:45] LABS: ALBUMIN 2.3 g/dL (3.4-5.0); CALCIUM 7.7 mg/dL (8.5-10.1); CREATININE 0.5 mg/dL (0.6-1.3); TOTAL BILIRUBIN 0.8 mg/dL (<0.1-1.0); TOTAL PROTEIN 4.7 g/dL (6.4-8.2)
[2019-12-21 06:48] LABS: POTASSIUM 2.8 mmol/L (3.5-5.1)
[2019-12-21 07:45] LABS: ABSOLUTE LYMPHOCYTES 0.9 thou/uL (0.8-5.3); ABSOLUTE MONOCYTES 0.5 thou/uL (0.0-1.2); ABSOLUTE NEUTROPHILS 15.7 thou/uL (1.6-8.1); PLATELET ESTIMATE ADEQUATE
--- NOTE | 2019-12-21 14:07 | NUR ---
WOUND NURSE: PATIENT SEEN TO ADDRESS SKIN LESION ON THE BRIDGE OF HER NOWE RESULTING FROM THE PRESSURE OF A BIPAP MASK. PRESENTS A SUPERFICIAL LESION MEASURING 1.0 X 0.1 X 0.1 CM AND NO ACTIVE DRAINAGE. PATIENT IS NOW INTUBATED AND PRESSURE TO THIS AREA IS NOT AN ISSUE. APPLIED MARATHON SKIN PROTECTANT AND LET DRY. PATIENT HAS LIMITED COMMUNICATION, SO TEACHING NOT PERFORMED A RESULT.
--- NOTE | 2019-12-21 14:07 | NUR ---
ICU rounds: Pt on vent, mild sedation. No weaning trial today. A&O but anxious. No restraints. CT of abd today. Covid test came back negative today.
[2019-12-21 17:50] LABS: URINE BILIRUBIN NEGATIVE (Negative); URINE BLOOD 1+ (Negative); URINE CLARITY CLEAR; URINE COLOR YELLOW; URINE GLUCOSE-RANDOM NEGATIVE (Negative); URINE KETONES NEGATIVE (Negative); URINE LEUKOCYTES-REFLEX NEGATIVE (Negative); URINE NITRITE-REFLEX NEGATIVE (Negative); URINE PROTEIN TRACE (Negative); URINE SPECIFIC GRAVITY <= 1.005 (1.005-1.030); URINE UROBILINOGEN 0.2 E.U./dl (0.2-1.0)
[2019-12-21 17:54] LABS: HEMATOCRIT 22.5 % (37.0-47.0); HEMOGLOBIN 7.4 gm/dL (12.0-15.0)
[2019-12-21 18:00] LABS: MUCUS None Seen strn/LPF (None Seen); SQUAMOUS NONE SEEN /LPF (0-3); YEAST-REFLEX Present (None Seen)
[2019-12-21 18:01] LABS: BACTERIA-REFLEX None Seen /HPF (None Seen); CRYSTALS None Seen /LPF (None Seen); HYALINE CASTS 0-3 Few /LPF (None Seen); URINE RBC 0-2 Rare /HPF (0-2); URINE WBC-REFLEX None Seen /HPF (0-5)
[2019-12-21 18:04] LABS: CALCIUM 7.8 mg/dL (8.5-10.1); CREATININE 0.6 mg/dL (0.6-1.3); MAGNESIUM 2.2 mg/dL (1.8-2.4)
[2019-12-21 18:05] LABS: POTASSIUM 5.2 mmol/L (3.5-5.1)
--- NOTE | 2019-12-21 19:59 | NUR ---
CT ABD/PELVIS AND NM BONE SCAN DONE, UNEVENTFUL TRANSFER. PRECEDEX AT 1.4 MCG/HR, PT AWAKE AND CALM. NO RESTRAINTS. TRANSFERRED TO ICU 7. TOLERATING TUBE FEEDS. POTASSIUM REPLACEMENT DONE PER PROTOCOL. SON UPDATED.
[2019-12-21 23:06] LABS: MYCOPLASMA PNEUMONIA IgG <100 U/mL (0-99); MYCOPLASMA PNEUMONIA IgM <770 U/mL (0-769)
[2019-12-22] VITALS (24 sets, daily range): BP systolic 93–132; BP diastolic 41–68
[2019-12-22 05:19] LABS: HEMATOCRIT 22.4 % (37.0-47.0); HEMOGLOBIN 7.4 gm/dL (12.0-15.0)
[2019-12-22 05:49] LABS: ALBUMIN 2.2 g/dL (3.4-5.0); CALCIUM 7.6 mg/dL (8.5-10.1); CREATININE 0.7 mg/dL (0.6-1.3); MAGNESIUM 2.1 mg/dL (1.8-2.4); POTASSIUM 4.3 mmol/L (3.5-5.1); TOTAL BILIRUBIN 0.6 mg/dL (<0.1-1.0); TOTAL PROTEIN 4.6 g/dL (6.4-8.2)
[2019-12-22 05:50] LABS: HEMATOCRIT 22.3 % (37.0-47.0); HEMOGLOBIN 7.4 gm/dL (12.0-15.0); MCH 30.2 pg (26.0-34.0); MCHC 33.1 g/dL (28.0-37.0); MCV 91.4 fL (80.0-100.0); RBC 2.44 mil/uL (4.20-5.00); RDW-CV 20.2 % (10.5-14.5); WBC 17.2 thou/uL (4.0-11.0)
[2019-12-22 05:55] LABS: ABSOLUTE LYMPHOCYTES 0.4 thou/uL (0.8-5.3); ABSOLUTE MONOCYTES 1.1 thou/uL (0.0-1.2); ABSOLUTE NEUTROPHILS 15.8 thou/uL (1.6-8.1); BASOPHILS 0.2 %; HEMATOCRIT 22.3 % (37.0-47.0); HEMOGLOBIN 7.5 gm/dL (12.0-15.0); LYMPHOCYTES 2.6 %; MCH 30.5 pg (26.0-34.0); MCHC 33.5 g/dL (28.0-37.0); MCV 91.1 fL (80.0-100.0); MONOCYTES 6.1 %; MPV 9.3 fl. (7.2-11.1); NUCLEATED RBCS 0 /100WBC; PLATELET COUNT* 88 thou/uL (150-400); POLYS 91.1 %; RBC 2.44 mil/uL (4.20-5.00); RDW-CV 20.5 % (10.5-14.5); WBC 17.3 thou/uL (4.0-11.0)
--- NOTE | 2019-12-22 06:52 | NUR ---
ASSUMED CARE AT 1910H, ON VENT AT 40% AND TOLERATED. SEEN ON BED CALM AND COOPERAIVE. SOMETIMES RESTLESS AND HAVING RIGHT QUADRANT ABDOMINAL PAIN/CRAMPING. CONTINOUS FEEDING WELL TOLERATED AND 200ML WATER FLUSHES EVERY 4H. NO BLEEDING NOTED. SON WANTED TO BE INFORM IF THEY WILL DO BREATHING TRIAL. HE WANTED TO HERE DURING THE TRIAL. CONTINUE MONITORING AND TOWARD GOALS.
--- NOTE | 2019-12-22 10:42 | NUR ---
ASSUMED CARE OF PATIENT. PLEASE SEE DOCUMENTED ASSESSMENT. PT IS AWAKE ON VENTILATOR AND INCONTINENT OF LARGE AMOUNT OF STOOL. MONITOR SHOWS SINUS TACH.
--- NOTE | 2019-12-22 12:21 | NUR ---
ICU rounds: Febrile last night. Remains on vent, anxious with increased HR. Weaning trial today pending getting Pt's anxiety under control. Found mets to lungs, bones and liver. Tube feeding. Sepsis positive.
--- NOTE | 2019-12-22 13:36 | NUR ---
PATIENT TO START WEANING TRIAL. DR MARIN SAID NOT TO HOLD THE PRECEDEX
--- NOTE | 2019-12-22 14:01 | NUR ---
1340 VENT WEANING TRIAL STARTED. NOTIFIED SON PER HIS REQUEST.
[2019-12-22 14:33] LABS: BE -4.2 mmol/L (-2 to +3); PCO2 35.2 mmHg (35.0-45.0); PO2 82.7 mmHg (75.0-100.0); pH 7.382 (7.340-7.450)
[2019-12-22 17:07] LABS: CALCIUM 7.4 mg/dL (8.5-10.1); CREATININE 0.6 mg/dL (0.6-1.3); POTASSIUM 3.8 mmol/L (3.5-5.1)
--- NOTE | 2019-12-22 17:31 | NUR ---
transferred to 206 with all records and belongings
--- NOTE | 2019-12-22 17:34 | NUR ---
PATIENT PROGRESSING TOWARDS GOALS. TOLERATING TUBE FEEDING AT GOAL. TOLERATED VENT WEANING TRIAL. SON HAS VISITED AND INTERACTED WITH PATIENT. WORKED WITH OCCUPATIONAL THERAPY. PLAN IS FOR ANOTHER WEANING TRIAL TOMORROW MORNING WITH EXTUBATION.
[2019-12-23] VITALS (50 sets, daily range): BP systolic 85–132; BP diastolic 43–72
[2019-12-23 06:07] LABS: ABSOLUTE LYMPHOCYTES 0.6 thou/uL (0.8-5.3); ABSOLUTE MONOCYTES 1.1 thou/uL (0.0-1.2); ABSOLUTE NEUTROPHILS 15.6 thou/uL (1.6-8.1); BASOPHILS 0.1 %; HEMATOCRIT 20.5 % (37.0-47.0); LYMPHOCYTES 3.5 %; MCHC 33.3 g/dL (28.0-37.0); MONOCYTES 6.6 %; MPV 9.6 fl. (7.2-11.1); NUCLEATED RBCS 0 /100WBC; PLATELET COUNT* 81 thou/uL (150-400); POLYS 89.8 %; RBC 2.28 mil/uL (4.20-5.00); RDW-CV 20.4 % (10.5-14.5); WBC 17.4 thou/uL (4.0-11.0)
[2019-12-23 06:13] LABS: HEMOGLOBIN 6.8 gm/dL (12.0-15.0)
--- NOTE | 2019-12-23 06:31 | NUR ---
VITALS STABLE, TEMP MAX 99.3F. RESTED THROUGH THE NIGHT. COMPLAINS OF BACK PAIN THIS AM. BMX2, LIQUID DARK GREEN, UOP 500CC. TF HELD AT 0500 FOR TRIAL THIS AM. OTHERWISE UNEVENTFUL NIGHT. Q2 TURNS FOR SKIN INTEGRITY. CALL LIGHT WITHIN REACH. WILL CONTINUE MONITORING.
[2019-12-23 06:40] LABS: ALBUMIN 2.4 g/dL (3.4-5.0); CALCIUM 7.5 mg/dL (8.5-10.1); CREATININE 0.6 mg/dL (0.6-1.3); MAGNESIUM 2.2 mg/dL (1.8-2.4); POTASSIUM 3.8 mmol/L (3.5-5.1); TOTAL BILIRUBIN 0.6 mg/dL (<0.1-1.0); TOTAL PROTEIN 4.6 g/dL (6.4-8.2)
--- NOTE | 2019-12-23 15:08 | NUR ---
ICU rounds: On vent, possible weaning trial tomorrow. Less anxious today.
[2019-12-23 15:19] LABS: HEMATOCRIT 25.7 % (37.0-47.0); HEMOGLOBIN 8.7 gm/dL (12.0-15.0)
--- NOTE | 2019-12-23 18:30 | NUR ---
SEDATION INCREASED PT TACHYPNEIC AND ANXIOUS, VERSED AND FENTANYL DRIP STARTED. NO TRIAL TODAY. VSS, FAN APPLIED FOR LOW GRADE FEVER. I UNIT PRBC TRANSFUSED. Q2 TURNS AND ORAL CARE GIVEN. SON AT THE BEDSIDE FOR FEW HOURS. SMALL AMOUNT OF BLEED FROM OG AT LIS. TUBE FEEDS HELD PER DR MARIN. PROTONIX DOSE INCREASED.
[2019-12-24] VITALS (23 sets, daily range): BP systolic 95–125; BP diastolic 45–63
--- NOTE | 2019-12-24 05:36 | NUR ---
VITALS STABLE, AFEBRILE. VERSED INCREASED TO 4MG/HR THIS AM FOR BREATHING OVER VENT. OTHERWISE UNEVENTFUL NIGHT. NO BM, UOP 350CC. Q2 TURNS FOR SKIN INTEGRITY. WILL CONTINUE MONITORING.
[2019-12-24 05:37] LABS: ABSOLUTE LYMPHOCYTES 0.4 thou/uL (0.8-5.3); ABSOLUTE MONOCYTES 0.8 thou/uL (0.0-1.2); ABSOLUTE NEUTROPHILS 14.9 thou/uL (1.6-8.1); HEMATOCRIT 25.9 % (37.0-47.0); HEMOGLOBIN 8.8 gm/dL (12.0-15.0); LYMPHOCYTES 2.7 %; MCH 30.7 pg (26.0-34.0); MCHC 33.9 g/dL (28.0-37.0); MCV 90.8 fL (80.0-100.0); MONOCYTES 4.8 %; MPV 10.2 fl. (7.2-11.1); NUCLEATED RBCS 1 /100WBC; PLATELET COUNT* 68 thou/uL (150-400); POLYS 92.5 %; RBC 2.85 mil/uL (4.20-5.00); RDW-CV 18.5 % (10.5-14.5); WBC 16.1 thou/uL (4.0-11.0)
[2019-12-24 05:54] LABS: ALBUMIN 2.2 g/dL (3.4-5.0); CALCIUM 7.7 mg/dL (8.5-10.1); CREATININE 0.5 mg/dL (0.6-1.3); MAGNESIUM 2.2 mg/dL (1.8-2.4); POTASSIUM 4.5 mmol/L (3.5-5.1); TOTAL BILIRUBIN 0.8 mg/dL (<0.1-1.0); TOTAL PROTEIN 4.6 g/dL (6.4-8.2)
[2019-12-24 08:32] LABS: APTT 23.7 Seconds (25.0-31.3); INR 1.1
--- NOTE | 2019-12-24 12:00 | NUR ---
TUBE FEEDING, JEVITY 1.5, RESTARTED AT 1145.
--- NOTE | 2019-12-24 14:25 | NUR ---
ICU rounds: O2 requirements have increased. Pt on vent and was sedated yesterday. No extubation planned for today, FIO2 is 60%.
--- NOTE | 2019-12-24 18:24 | NUR ---
NO WEANING TODAY SINCE PT STILL NEEDING HIGH FIO2. DR SAVAGE DISCUSSED WITH FAMILY REGARDING CODE STATUS AND POSSIBLE GROUP HOME CARE REQUIREMENT. SON LEROY CALLED BACK AND DECIDED NOT TO CHANGE CODE STATUS FOR NOW, CONTINUE FULL CODE UNTIL THIS SATURDAY WHEN HER DAUGHTER CHAYITO WILL VISIT HER. SEDATED WITH FENTANYL, PRECEDEX AND VERSED. VENT SETTINGS UNCHANGED THROUGHOUT THE DAY. HIGH RESIDUALS WITH TUBE FEEDS, HELD FOR 2 HRS. JEVITY AT 30 MLS/HR CURRENTLY. WATER BOLUSES 200 MLS Q4H. NO BM THIS SHIFT. Q2 TURNS AND ORAL CARE GIVEN.
[2019-12-25] VITALS (47 sets, daily range): BP systolic 82–120; BP diastolic 31–61
[2019-12-25 05:54] LABS: HEMATOCRIT 22.5 % (37.0-47.0); HEMOGLOBIN 7.7 gm/dL (12.0-15.0); MCHC 34.2 g/dL (28.0-37.0); MCV 90.7 fL (80.0-100.0); MPV 10.1 fl. (7.2-11.1); RBC 2.49 mil/uL (4.20-5.00); RDW-CV 18.2 % (10.5-14.5); WBC 13.2 thou/uL (4.0-11.0)
[2019-12-25 06:07] LABS: CALCIUM 7.8 mg/dL (8.5-10.1); CREATININE 0.4 mg/dL (0.6-1.3)
--- NOTE | 2019-12-25 13:38 | NUR ---
WOUND NURSE: PATIENT SEEN TO ADDRESS SHALLOW LESION ON RIGHT LATERAL MALLEOLUS. PRESENTS WITH SHALLOW INTACT DRY SCABS MOST LIKELY RELATED TO FRICTION -- PATIENT SLIDES LE'S ALONG THE MATTRESS. WILL OBTAIN HEELMEDIX BOOT TO PROTECT THIS FROM ADDITIONAL FRICTION OR PRESSURE RELATED WOUNDING.
--- NOTE | 2019-12-25 14:58 | NUR ---
ICU rounds: Remains on vent. Family to discuss DNR status with tomorrow. Plan metastatic CA workup once more medically stable
--- NOTE | 2019-12-25 15:56 | NUR ---
WOUND NURSE: PATIENT SEEN FOR F/U ASSESSMENT REGARDING LESION ON THE BRIDGE OF THE NOSE APPARENTLY CAUSED FROM PRESSURE FROM A BIPAP MASK. NO CHANGE IS NTOED WOUND REMAINS SHALLOW, NO DRAINAGE, WITH MARATHON STILL INTACT. CONTINUES TO MEASURE 1.0 X 1.0 X 0.1 CM. WILL FOLLOW UP AGAIN NEXT WEEK IF PATIENT STILL INPATIENT.
[2019-12-25 20:51] LABS: POTASSIUM 6.7 mmol/L (3.5-5.1)
[2019-12-25 21:04] LABS: CALCIUM 7.6 mg/dL (8.5-10.1); CREATININE 0.6 mg/dL (0.6-1.3)
[2019-12-26] VITALS (78 sets, daily range): BP systolic 64–140; BP diastolic 29–72
[2019-12-26 05:04] LABS: HEMATOCRIT 22.7 % (37.0-47.0); HEMOGLOBIN 7.7 gm/dL (12.0-15.0); MCHC 33.8 g/dL (28.0-37.0); MCV 91.8 fL (80.0-100.0); MPV 10.3 fl. (7.2-11.1); NUCLEATED RBCS 1 /100WBC; PLATELET COUNT* 58 thou/uL (150-400); RBC 2.48 mil/uL (4.20-5.00); RDW-CV 19.1 % (10.5-14.5)
[2019-12-26 05:20] LABS: ALBUMIN 2.1 g/dL (3.4-5.0); CALCIUM 7.8 mg/dL (8.5-10.1); CREATININE 0.6 mg/dL (0.6-1.3); MAGNESIUM 2.1 mg/dL (1.8-2.4); POTASSIUM 4.8 mmol/L (3.5-5.1); TOTAL BILIRUBIN 0.7 mg/dL (<0.1-1.0); TOTAL PROTEIN 4.5 g/dL (6.4-8.2)
[2019-12-26 06:25] LABS: ABSOLUTE LYMPHOCYTES 1.2 thou/uL (0.8-5.3); ABSOLUTE MONOCYTES 0.7 thou/uL (0.0-1.2); ABSOLUTE NEUTROPHILS 11.2 thou/uL (1.6-8.1); METAMYELOCYTES 2 %; MICROCYTES 2+; MYELOCYTES 2 %; PLATELET ESTIMATE DECREASED
[2019-12-26 06:26] LABS: HYPOCHROMASIA 2+; SCHISTOCYTES 1+
--- NOTE | 2019-12-26 07:35 | NUR ---
PATIENT REMAINS INTUBATED ON VENTILATOR. TUBE FEEDING INFUSING AT 30ML/HR, PATIENTS BP LABILE BUT IN ACCEPTABLE RANGE. PATIENT CALM AND ABLE TO RESPOND. PLANS TENTATIVE TO EXTUBATE PATIENT ON DAY SHIFT. NO SIGNIFICANT EVENTS THIS SHIFT.
[2019-12-26 13:18] LABS: BE -3.2 mmol/L (-2 to +3); PCO2 30.5 mmHg (35.0-45.0); PO2 66.3 mmHg (75.0-100.0)
[2019-12-26 13:19] LABS: HEMATOCRIT 23.5 % (37.0-47.0); HEMOGLOBIN 7.9 gm/dL (12.0-15.0); MCH 30.9 pg (26.0-34.0); MCHC 33.5 g/dL (28.0-37.0); MCV 92.3 fL (80.0-100.0); MPV 10.3 fl. (7.2-11.1); RBC 2.54 mil/uL (4.20-5.00); RDW-CV 19.2 % (10.5-14.5); WBC 16.5 thou/uL (4.0-11.0)
[2019-12-26 13:26] LABS: CALCIUM 7.6 mg/dL (8.5-10.1); CREATININE 0.6 mg/dL (0.6-1.3); POTASSIUM 4.3 mmol/L (3.5-5.1)
[2019-12-26 13:30] LABS: ALBUMIN 2.1 g/dL (3.4-5.0); MAGNESIUM 1.9 mg/dL (1.8-2.4); PHOSPHORUS* 2.5 mg/dL (2.5-4.9); TOTAL BILIRUBIN 0.9 mg/dL (<0.1-1.0); TOTAL PROTEIN 4.5 g/dL (6.4-8.2)
[2019-12-26 17:27] LABS: URINE BILIRUBIN NEGATIVE (Negative); URINE BLOOD TRACE (Negative); URINE CLARITY CLEAR; URINE COLOR YELLOW; URINE GLUCOSE-RANDOM NEGATIVE (Negative); URINE KETONES NEGATIVE (Negative); URINE LEUKOCYTES-REFLEX NEGATIVE (Negative); URINE NITRITE-REFLEX NEGATIVE (Negative); URINE PROTEIN NEGATIVE (Negative); URINE UROBILINOGEN 0.2 E.U./dl (0.2-1.0)
--- NOTE | 2019-12-26 18:20 | NUR ---
PATIENT NOT PROGESSING WELL TOWARDS GOALS THIS SHIFT. ATTEMPTED A TRIAL THIS MORNING WHICH THE PATIENT MADE 5 MINUTUES INTO THE TRIAL BEFORE BECOMING TACHYCARDIC AND TACHYPNEIC WITH A LOW BLOOD PRESSURE. RESUMED FENTANYL GTT AND SWITCHED BACK OVER TO ASSIST CONTROL. TITRATED UP ON VENTILATOR OXYGENATION AFTER TRANSFPORT TO CT FOR A CTA. PATIENT'S TACHYCARDIA NOT WELL RESOLVED AFTER TRIAL EVEN WITH MULTIPLE CHANGES OF TREATMENT. FAMILY MEETING WITH DR SAVAGE AND ALL 4 CHILDREN TODAY. DAUGHTER IN FROM [place] AND IS NOW DESIGNATED VISITOR. FAMILY WISHES TO CONTINUE DAILY TRIALS AND REEVALUATE IF PATIENT IS NOT EXTABATABLE BY DAY 10-14. PATIENT O2 INCREASED TO 100% AFTER CT TRANSFER, DID NOT TOLERATE MOVING WELL. BED IN LOWEST POSITION, CALL LIGHT IN REACH, RELINER IN PLACE.
[2019-12-27] VITALS (54 sets, daily range): BP systolic 66–121; BP diastolic 23–59
--- NOTE | 2019-12-27 05:38 | NUR ---
PATIENT'S HEART RATE INCREASING THROUGHOUT THE SHIFT AND BLOOD PRESSURE STEADILY DROPPING WHILE ON PRESSORS. SPOKE WITH DR. SMITH DURING TELE MED ROUNDS AND ORDER FOR NEOSYNEPHRINE OBTAINED. BP STILL LOW AND HR TOO HIGH TO SAFELY TITRATE LEVOPHED ANY MORE. FLUID BOLUS ADMINISTERED AND HR AND BP STABILIZED FOR ABOUT AN HOUR. BP BEGAN TO DROP AGAIN DESPITE PRESSORS BEGIN TITRATED UP. CALLED PATIENT'S SON AND DAUGHTER WITH UPDATE AND TOLD THEM THEY SHOULD COME TO THE HOSPITAL. WHEN THE FAMILY ARRIVED, THEY DECIDED TO PURSUE COMFORT CARE THIS SHIFT. SPOKE WITH DR. SAVAGE AND DR. SMITH TO NOTIFY THEM OF THE DEVELOPMENT. COMFORT CARE ORDERS OBTAINED. WCTM THE SITUATION
--- NOTE | 2019-12-27 07:49 | NUR ---
PATIENT CLEANED AND PLACED IN BODY BAG. HOME CALLED AT THIS TIME AND WILL BE SENDING SOMEONE TO PROFESSIONAL DRIVER BODY. FAMILY HAS LEFT AT THIS TIME.
--- NOTE | 2019-12-27 08:02 | NUR ---
PATIENT PLACED ON COMFORT CARE AT 0600, EXTUBATED BY RT AT 0606. PATIENT RECIEVED FENTANYL AND VERSED PER ORDERS. PATIENT AT 0643. PRONOUNCED BY TANIA PERALES AND HEATHER PERALES. FAMILY AT BEDSIDE DURING PROCESS. THANK YOU FOR ALLOWING ME TO PARTICIPATE IN THIS PATIENT'S CARE.
--- NOTE | 2019-12-28 10:30 | EKG ---
[place] [address] ELECTROCARDIOGRAM REPORT Name: OMAR PHELPS Room: [address] IN .R.#: [id number] Admission: 12/12/19 Attend Phys: Anneliese Sanford, Discharge: 12/27/19 Date of : 41 Date of Service: 12/25/19 1836 Report #: [id number] THIS REPORT FOR: //name// 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 : 1945 Requested By: Anneliese Sanford Order Number: [id number] Reading MD: Raymond Reynolds Measurements Intervals [place] Rate: 126 P: 71 CA: 137 QRS: 74 QRSD: 96 T: 41 QT: 302 QTc: 438 Interpretive Statements Sinus tachycardia low voltage Probable anterior infarct, age indeterminate Compared to ECG 12/17/2019 01:24:31 Myocardial infarct finding now present Sinus rhythm no longer present Electronically Signed On 12-28-2019 10:30:14 CDT by Raymond Reynolds [email or web address] <ELECTRONICALLY SIGNED> By: Raymond Reynolds MD, FACC 12/28/19 1030 1836 1836 Raymond Reynolds MD, FAC /EPI
--- NOTE | 2019-12-28 10:35 | EKG ---
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: [facility] : 1945 Requested By: James Thrasher Order Number: [id number] Joanie MD: Raymond Reynolds Measurements Intervals [place] Rate: 115 P: 67 CT: 135 QRS: 87 QRSD: 68 T: QT: 289 QTc: 400 Interpretive Statements Sinus tachycardia Multiform supraventricular premature complexes Borderline right axis deviation Low voltage, precordial leads Borderline repolarization abnormality Electronically Signed On 12-28-2019 10:34:36 CDT by Raymond Reynolds [email or web address] <ELECTRONICALLY SIGNED> By: Raymond Reynolds MD, FAC 12/28/19 1034 1457 1457 Raymond Reynolds MD, [facility] /EPI
== END 2019-12-27 06:43 | DRG 853 ==
LOC: M.ERS 06:33 → M.ICU 08:39 → M.TBA-ER 08:39 → M.ICU 10:13
PROVIDERS: Emergency Medicine; Internal Medicine; Internal Medicine Critical Care Medicine; Pediatrics; Specialist; ADMIT Internal Medicine; ATTEND Internal Medicine
PROC: 5A09357 Assistance with Respiratory Ventilation, Less than 24 Consecutive Hours, Continuous Positive Airway Pressure (ICD-10-PCS; principal; 2019-12-12)
PROC: 5A09357 Assistance with Respiratory Ventilation, Less than 24 Consecutive Hours, Continuous Positive Airway Pressure (ICD-10-PCS; 2019-12-13)
PROC: 30233N1 Transfusion of Nonautologous Red Blood Cells into Peripheral Vein, Percutaneous Approach (ICD-10-PCS; 2019-12-13)
PROC: 06HY33Z Insertion of Infusion Device into Lower Vein, Percutaneous Approach (ICD-10-PCS; 2019-12-13)
PROC: 5A09357 Assistance with Respiratory Ventilation, Less than 24 Consecutive Hours, Continuous Positive Airway Pressure (ICD-10-PCS; 2019-12-14)
PROC: B548ZZA Ultrasonography of Superior Vena Cava, Guidance (ICD-10-PCS; 2019-12-14)
PROC: 02HV33Z Insertion of Infusion Device into Superior Vena Cava, Percutaneous Approach (ICD-10-PCS; 2019-12-14)
PROC: 5A09357 Assistance with Respiratory Ventilation, Less than 24 Consecutive Hours, Continuous Positive Airway Pressure (ICD-10-PCS; 2019-12-15)
PROC: 5A09357 Assistance with Respiratory Ventilation, Less than 24 Consecutive Hours, Continuous Positive Airway Pressure (ICD-10-PCS; 2019-12-16)
PROC: 5A09357 Assistance with Respiratory Ventilation, Less than 24 Consecutive Hours, Continuous Positive Airway Pressure (ICD-10-PCS; 2019-12-17)
PROC: 06H03DZ Insertion of Intraluminal Device into Inferior Vena Cava, Percutaneous Approach (ICD-10-PCS; 2019-12-18)
PROC: 5A09357 Assistance with Respiratory Ventilation, Less than 24 Consecutive Hours, Continuous Positive Airway Pressure (ICD-10-PCS; 2019-12-18)
PROC: 5A1955Z Respiratory Ventilation, Greater than 96 Consecutive Hours (ICD-10-PCS; 2019-12-18)
PROC: 0BH17EZ Insertion of Endotracheal Airway into Trachea, Via Natural or Artificial Opening (ICD-10-PCS; 2019-12-18)
DX: A41.52 Sepsis due to Pseudomonas (principal); J15.6 Pneumonia due to other Gram-negative bacteria; R65.21 Severe sepsis with septic shock; E43 Unspecified severe protein-calorie malnutrition; K85.90 Acute pancreatitis without necrosis or infection, unspecified; K29.71 Gastritis, unspecified, with bleeding; J96.22 Acute and chronic respiratory failure with hypercapnia; J96.21 Acute and chronic respiratory failure with hypoxia; C34.90 Malignant neoplasm of unspecified part of unspecified bronchus or lung; C78.7 Secondary malignant neoplasm of liver and intrahepatic bile duct; C79.51 Secondary malignant neoplasm of bone; J44.0 Chronic obstructive pulmonary disease with (acute) lower respiratory infection; J44.1 Chronic obstructive pulmonary disease with (acute) exacerbation; N39.0 Urinary tract infection, site not specified; I82.452 Acute embolism and thrombosis of left peroneal vein; C79.70 Secondary malignant neoplasm of unspecified adrenal gland; M84.48XA Pathological fracture, other site, initial encounter for fracture; I10 Essential (primary) hypertension; E78.00 Pure hypercholesterolemia, unspecified; E78.5 Hyperlipidemia, unspecified; D64.9 Anemia, unspecified; I27.20 Pulmonary hypertension, unspecified; D52.9 Folate deficiency anemia, unspecified; I95.9 Hypotension, unspecified; R73.9 Hyperglycemia, unspecified; E03.9 Hypothyroidism, unspecified; E87.70 Fluid overload, unspecified; Z51.5 Encounter for palliative care; Z66 Do not resuscitate; Z20.828 Contact with and (suspected) exposure to other viral communicable diseases; Z87.891 Personal history of nicotine dependence; Z79.899 Other long term (current) drug therapy; Z90.710 Acquired absence of both cervix and uterus; Z68.28 Body mass index [BMI] 28.0-28.9, adult